=== PATIENT | female | born 1945 | race African-American/Black ===

== ENCOUNTER 2024-04-09 11:05 | Emergency (ER) | payer MEDICARE, OTHER ==
[~2024-04-09] VITALS: Ht 172.7 cm; Wt 93.0 kg
[2024-04-09 11:20] VITALS: O2SAT 100
[2024-04-09] MEDS: TETRACAINE 0.5% OPHTH DROPS 4ML LEFTEYE ONE (12:57)
[2024-04-09 14:14] VITALS: BP 140/88; PULSE 70; RESP 18; TEMP 36.89184; O2SAT 100
== END 2024-04-09 14:29 | disposition home or self-care (01) ==
LOC: ER 13:07
DX: H53.8 Other visual disturbances (principal); E78.00 Pure hypercholesterolemia, unspecified; I10 Essential (primary) hypertension; Z90.710 Acquired absence of both cervix and uterus; Z98.890 Other specified postprocedural states
CPT/HCPCS: 99284